=== PATIENT | female | born 1970 | race Caucasian/White ===

== ENCOUNTER 2023-07-21 01:37 | Day surgery (SDC) | payer BC, SELFPAY ==
[2023-07-06 15:01] VITALS: BMI 28.6
--- NOTE | 2023-07-19 11:48 | SUR.PREOP ---
Patient called regarding upcoming procedure. Message left on patient's voicemail regarding preop instructions, appointment times, and procedure prep.
[2023-07-21 12:45] VITALS: BP 125/92; PULSE 96; RESP 18; TEMP 36.3; O2SAT 100; BMI 29.9
--- NOTE | 2023-07-21 12:55 | P.PNAN_ITS ---
Anes - Initial Pre Proc Eval Procedure: Operation Date: 07/21/23 14:00 Proposed Procedures p Screening Colonoscopy - Mike Hayes MD Date/Time: 07/21/23 12:55 Surgeon: Mike Hayes MD Pre Op Diagnosis: neoplasm screening Patient Data Age: 52 Gender: F Height: 1.75 m Weight: 92.2 kg Last Vital Signs Temp 97.3 F L 07/21/23 12:45 Pulse 96 07/21/23 12:45 Resp 18 07/21/23 12:45 BP 125/92 H 07/21/23 12:45 Pulse Ox 100 07/21/23 12:45 O2 Del Method Room Air 07/21/23 12:45 Allergies Allergy/AdvReac Type Severity Reaction Status Date / Time No Known Allergies Allergy Verified 07/21/23 12:51 Home Medications Medication Instructions Recorded Confirmed Type cetirizine 10 mg capsule (Zyrtec) 10 mg PO DAILY 07/06/23 07/06/23 History cholecalciferol (vitamin D3) 125 125 mcg PO DAILY 07/06/23 07/06/23 History mcg (5,000 unit) tablet (Vitamin D3) phentermine 30 mg capsule 30 mg PO DAILY 07/06/23 07/06/23 History topiramate 50 mg tablet 50 mg PO BID 07/06/23 07/06/23 History Patient hx anesthesia problems: none Family hx anesthesia problems: none Results Review: All pre-operative results and documents have been reviewed as part of the pre- operative evaluation. [facility] Family History Family History (System 10/16/21 @ 13:53 by Stephani Griggs) Mother Family history of arthritis Other Acute myocardial infarction Family history of malignant neoplasm of urinary bladder Hypertension Social History Social History (System 10/16/21 @ 13:53 by Stephani Griggs) Smoking packs per day: 0.5 Smoking cigarettes per day: 10.0 Years smoked: 10 Smoking pack-years: 5.00 Smoking status: Former smoker Tobacco type: cigarettes Alcohol intake: current Alcohol use details: 2 drinks per month Living arrangements: with family Spiritual care concerns: No Anes - Eval Final PreProcedure Day of Procedure 07/21/23 12:55 Patient weight: normal Heart: regular rate and rhythm Lungs: clear to auscultation Airway: Mallampati scale class II Neurological: alert and oriented Last oral intake: >/= 8 hours ASA classification: II Emergent: no Anesthetic plan: proceed Anesthesia type and monitoring: general GIVS and standard monitoring Results Review: All pre-operative results and documents have been reviewed as part of the pre- operative evaluation. Informed Consent: The patient's anesthetic plan and its attendant risks and benefits were discussed with the patient/family/POA. Questions were solicited and answers provided to the satisfaction of the patient/family/POA.
[2023-07-21] MEDS: LACTATED RINGERS 1,000 ML 150 ML IV CONT (13:01)
--- NOTE | 2023-07-21 13:07 | PM.HPGS ---
History of Present Illness History of Present Illness Consent: Risks, benefits, and alternatives have been discussed and questions answered. Patient agrees to proceed with procedure. Chief complaint: neoplasm screening Narrative: Mine Kingston is a 52 year old female here for first screening colonoscopy Review of Systems Constitutional: Constitutional: Denies headache(s) and Denies weakness Eyes: Eyes: Denies blurry vision ENT: Reports Normal hearing present, Denies headache(s) and Denies neck pain Cardiovascular: Cardiovascular: Denies chest pain and Denies dyspnea Respiratory: Respiratory: Denies dyspnea Gastrointestinal: Gastrointestinal: Reports no additional gastrointestinal complaints Genitourinary: Genitourinary: Denies dysuria Musculoskeletal: Musculoskeletal: Denies neck pain Integumentary/Breasts: Skin/Breast: Denies dry skin Neurologic: Reports Normal hearing present, Denies headache(s) and Denies weakness Psychiatric: Psychiatric: Denies anxiety Endocrine: Endocrine: Denies change in body appearance Hematologic/Lymphatic: Hematologic/Lymphatic: Denies easy bleeding Allergic/Immunologic: Allergic/Immunologic: Denies urticaria [facility] Past Medical History Medical History (Updated 07/21/23 @ 13:08 by Mike Hayes MD) Colon cancer screening Family History Family History (System 10/16/21 @ 13:53 by Stephani Griggs) Mother Family history of arthritis Other Acute myocardial infarction Family history of malignant neoplasm of urinary bladder Hypertension Social History Social History (System 10/16/21 @ 13:53 by Stephani Griggs) Smoking packs per day: 0.5 Smoking cigarettes per day: 10.0 Years smoked: 10 Smoking pack-years: 5.00 Smoking status: Former smoker Tobacco type: cigarettes Alcohol intake: current Alcohol use details: 2 drinks per month Living arrangements: with family Spiritual care concerns: No Meds Home Medications and Allergies Home Medications Medication Instructions Recorded Confirmed Type cetirizine 10 mg capsule (Zyrtec) 10 mg PO DAILY 07/06/23 07/06/23 History cholecalciferol (vitamin D3) 125 125 mcg PO DAILY 07/06/23 07/06/23 History mcg (5,000 unit) tablet (Vitamin D3) phentermine 30 mg capsule 30 mg PO DAILY 07/06/23 07/06/23 History topiramate 50 mg tablet 50 mg PO BID 11/28/23 11/28/23 History Allergies Allergy/AdvReac Type Severity Reaction Status Date / Time No Known Allergies Allergy Verified 07/21/23 12:51 Vital Signs Vital Signs - 24 hr 07/21/23 12:45 Temperature 97.3 F L Pulse Rate 96 Respiratory Rate 18 Blood Pressure 125/92 H Pulse Oximetry 100 Oxygen Delivery Room Air Exam Const: General: comfortable and no acute distress HENMT: Face/Nose/Sinus: Normal nares present Eyes: General: appearance normal, both eyes and all related structures Neck: Neck: no JVD Resp: Auscultation: clear to auscultation bilaterally Cardio: Rate: regular rate Rhythm: regular rhythm GI: Inspection: non-distended GI Palp: Yes Soft to palpation Skin: General skin exam: normal color Neuro: General: gait normal Speech: normal speech Extrem: General: normal to inspection Psych: Mental Status: mental status grossly normal Assessment and Plan Assessment and plan (1) Colon cancer screening: Code(s): Z12.11 - Encounter for screening for malignant neoplasm of colon Status: Acute Assessment and Plan: colonoscopy
[2023-07-21 13:29] VITALS: BP 128/76; PULSE 91; RESP 21; O2SAT 100
[2023-07-21 13:39] VITALS: BP 102/61; PULSE 82; RESP 26; O2SAT 100
[2023-07-21 13:49] VITALS: BP 100/58; PULSE 80; RESP 22; O2SAT 100
== END 2023-07-21 13:51 | disposition home or self-care (01) ==
PROVIDERS: PCP Physician Assistant; Visit Provider Internal Medicine Gastroenterology
PROC: 0DJD8ZZ Inspection of Lower Intestinal Tract, Via Natural or Artificial Opening Endoscopic (ICD-10-PCS; CPT 45378; principal; 2023-07-21 14:00)
DX: Z12.11 Encounter for screening for malignant neoplasm of colon (principal); Z87.891 Personal history of nicotine dependence
CPT/HCPCS: 45378; J7120

== ENCOUNTER 2023-11-14 13:46 | Emergency (ER) | payer BC, SELFPAY ==
--- NOTE | 2023-11-14 13:55 | ED.WOUNDLAC ---
HPI - Wound/Laceration General Chief Complaint: Wound/Laceration Stated Complaint: R FOOT LACERATION Time Seen by Provider: 11/14/23 14:10 Source: patient, RN notes reviewed and old records reviewed Mode of arrival: ambulatory Limitations: no limitations History of Present Illness HPI narrative: 52-year-old female presents to the [facility] with a right dorsal foot laceration that occurred yesterday approximately 2:00 p.m., approximately 24 hours prior to arrival. Unsure of last tetanus. States that she dropped glass soda bottle on the top of her foot, it broke, 1 cm laceration, bleeding controlled his noted to the dorsal aspect. Patient tetanus UTD: No Treatments prior to arrival: other (Clean) Related Data Home Medications Medication Instructions Recorded Confirmed cetirizine 10 mg capsule (Zyrtec) 10 mg PO DAILY 07/06/23 11/14/23 cholecalciferol (vitamin D3) 125 125 mcg PO DAILY 07/06/23 11/14/23 mcg (5,000 unit) tablet (Vitamin D3) phentermine 30 mg capsule 30 mg PO DAILY 07/06/23 11/14/23 topiramate 50 mg tablet 50 mg PO BID 07/06/23 11/14/23 tirzepatide (weight loss) 5 mg/0.5 5 mg subcut WEEKLY 11/14/23 11/14/23 mL subcutaneous pen injector Allergies Allergy/AdvReac Type Severity Reaction Status Date / Time No Known Allergies Allergy Verified 11/14/23 14:09 Review of Systems Review of Systems: All systems reviewed & are unremarkable except as noted in HPI and below Constitutional: Constitutional: Reports no additional constitutional complaints Eyes: Eyes: Reports no additional eye complaints ENT: Reports system reviewed and no additional complaints, except as documented Cardiovascular: Cardiovascular: Reports no additional cardiovascular complaints, Denies chest pain and Denies dyspnea Respiratory: Respiratory: Reports no additional respiratory complaints, Denies chest congestion, Denies cough and Denies dyspnea Gastrointestinal: Gastrointestinal: Reports no additional gastrointestinal complaints, Denies abdominal pain, Denies nausea and Denies vomiting Musculoskeletal: Musculoskeletal: Reports no additional musculoskeletal complaints Integumentary/Breasts: Skin/Breast: Reports as per HPI and Reports wounds Neurologic: Reports system reviewed and no additional complaints, except as documented Psychiatric: Psychiatric: Reports no additional psychiatric complaints Allergic/Immunologic: Allergic/Immunologic: Reports no additional allergic/immunologic complaints PMFSH Past Medical History Medical History Colon cancer screening Family History Family History Mother Family history of arthritis Other Acute myocardial infarction Family history of malignant neoplasm of urinary bladder Hypertension Social History Social History Smoking packs per day: 0.5 Smoking cigarettes per day: 10.0 Years smoked: 10 Smoking pack-years: 5.00 Smoking status: Former smoker Tobacco type: cigarettes Alcohol intake: current Alcohol use details: 2 drinks per month Living arrangements: with family Spiritual care concerns: No Comments At the time of my signature, I reviewed and agree with the nursing past medical, surgical, social, and family history. There is no relevant family history pertinent to the patient complaint. Exam Const: General: cooperative, healthy appearing, comfortable, no acute distress, well developed, alert and well nourished Nutritional Appearance: well nourished Orientation/consciousness: patient oriented x3 Limitations: no limitations HENMT: Head: normal to inspection Ears: hearing grossly normal bilaterally and external ears normal Face/Nose/Sinus: Normal external nose present, Normal nares present, Normal nasal mucous membranes and turbinates present, normal facial exam and face symmetric Face
[2023-11-14 14:00] VITALS: BP 110/80; PULSE 96; RESP 16; TEMP 36.8; O2SAT 100
[2023-11-14] MEDS: TETANUS,DIPHTHERIA,AC PERTUSSIS ADULT (0.5 ML) BOOSTRIX IM (14:23)
== END 2023-11-14 14:45 | disposition home or self-care (01) ==
PROVIDERS: Emergency Provider Nurse Practitioner; PCP Physician Assistant
DX: S91.311A Laceration without foreign body, right foot, initial encounter (principal); W25.XXXA Contact with sharp glass, initial encounter; Z23 Encounter for immunization; Z87.891 Personal history of nicotine dependence
CPT/HCPCS: 90471; 90715; 99213; G0463

== ENCOUNTER 2025-02-02 10:26 | Outpatient (CLI) | payer OTHER, SELFPAY ==
[2025-02-02 11:53] LABS: Thyroid Stimulating Hormone 0.776 uIU/mL (0.465-4.680)
[2025-02-02 12:33] LABS: Free T3 3.04 pg/mL (2.71-6.16); Free T4 Free Thyroxine. 1.24 ng/dL (0.78-2.19)
[2025-02-03 02:23] LABS: Progesterone. <0.5 ng/mL
[2025-02-06 19:08] LABS: Testosterone Free 1.8 pg/mL (0.1-6.4); Testosterone Total 29 ng/dL (2-45)
== END 2025-02-02 10:27 | disposition home or self-care (01) ==
LOC: ANHLAB 10:32
PROVIDERS: PCP Nurse Practitioner Family; Visit Provider Nurse Practitioner
DX: N95.1 Menopausal and female climacteric states (principal); L65.9 Nonscarring hair loss, unspecified; R53.83 Other fatigue; R63.5 Abnormal weight gain; R68.82 Decreased libido
CPT/HCPCS: 36415; 82670; 82728; 84144; 84402; 84403; 84439; 84443; 84481

== ENCOUNTER 2025-06-25 15:32 | Emergency (ER) | payer OTHER, SELFPAY ==
--- NOTE | ~2025-06-25 | CT_ITS ---
EXAMINATION: CT brain wo con DATE: 06/25/2025 16:09 INDICATION: Right-sided facial paralysis TECHNIQUE: Computed tomography (CT) of the head was performed without intravenous contrast. Sagittal and coronal reconstructions were performed. The mA was adjusted according to patient size. Iterative reconstruction technique was employed. The dose-length product was 605.33 mGy-cm. COMPARISON: None FINDINGS: No acute intracranial hemorrhage, acute infarction or abnormal extra axial fluid collection. Ventricles are normal and symmetric. No mass/mass effect. The orbits, paranasal sinuses and mastoid air cells are normal. IMPRESSION: 1. Normal brain. No acute intracranial process. Reviewed, dictated and finalized at location A. T OFFICE SPEC
[2025-06-25 15:36] VITALS: BP 146/76; PULSE 97; RESP 18; TEMP 36.6; O2SAT 100
[2025-06-25 17:28] VITALS: BP 124/82; PULSE 68; RESP 17; O2SAT 99
[2025-06-25 19:22] LABS: Hematocrit 41.7 % (37.0-47.0); Hemoglobin 13.6 g/dL (12.0-15.0); Immature Granulocyte Percent A 0.5 % (0-0.5); Lymphocytes Absolute Auto 2.55 K/mm3 (0.9-3.2); Mean Corpuscular HGB Conc 32.6 g/dl (32-36); Mean Corpuscular Hemoglobin 28.3 pg (26-34); Mean Corpuscular Volume 86.7 fl (80-100); Nucleated Red Blood Cells Absolute Auto 0.000 K/mm3 (0.0-0.012); Nucleated Red Blood Cells Perc 0.0 % (0.0-0.2); Platelet Count Result 249 k/mm3 (150-375); Red Blood Count 4.81 M/mm3 (4.2-5.4); White Blood Count 8.2 K/mm3 (4.5-10.0)
[2025-06-25 19:41] LABS: Alanine Aminotransferase 22 U/L (6-35); Albumin Level 4.7 g/dL (3.5-5.1); Alkaline Phosphatase 73 U/L (38-126); Anion Gap 7 mmol/L (4-12); Aspartate Amino Transferase 28 U/L (14-36); Bilirubin,Total 0.5 mg/dL (0.2-1.3); Blood Urea Nitrogen 23 mg/dL (7-17); CRP < 0.5 mg/dL (<1.0); Calcium 9.3 mg/dL (8.4-10.2); Carbon Dioxide 29 mmol/L (22-30); Chloride 103 mmol/L (98-107); Estimated CRCL calculation 96 ml/min; Estimated Glomerular Filt Rate > 60; Glucose 92 mg/dL (65-110); Potassium 4.1 mmol/L (3.4-5.0); Sodium 139 mmol/L (137-145); Total Protein 8.7 g/dL (6.3-8.2)
[2025-06-25 20:23] VITALS: BP 137/81; PULSE 74; RESP 14; O2SAT 100
--- NOTE | 2025-06-25 20:57 | ED_ITS ---
HPI - General Adult General Chief complaint: Unspecified Stated complaint: ENT wants her seen for Poss jaron escamilla syndrome Time Seen by Provider: 06/25/25 20:42 History of Present Illness HPI narrative: patient is a 54-year-old female who presents emergency department with chief complaint of possible Garrison Escamilla patient reports that she had pain in her right ear started swelling in the noticed that she had blisters develop on the year the patient states yesterday she developed facial palsy on the right side the same side as the air. Patient was sent to the emergency department for evaluation as they were concerned for possible Jaron Escamilla Related Data Home Medications ?Medication ?Instructions ?Recorded ?Confirmed ?Last Taken ?Type cetirizine 10 mg capsule (Zyrtec) 10 mg PO DAILY 07/0611/14/23 07/21/23 History cholecalciferol (vitamin D3) 125 125 mcg PO DAILY 06/1011/14/23 Unknown History mcg (5,000 unit) tablet (Vitamin D3) phentermine 30 mg capsule 30 mg PO DAILY 07/06/2303/01 Unknown History topiramate 50 mg tablet 50 mg PO BID 07/06/23 Unknown History tirzepatide (weight loss) 5 mg/0.5 5 mg subcut WEEKLY 11/14/23 11/14/23 Unknown History mL subcutaneous pen injector Allergies Allergy/AdvReac Type Severity Reaction Status Date / Time No Known Allergies Allergy Verified 06/25/25 15:41 Review of Systems 2 Review of Systems: A 10 system review of systems was completed on the patient and is negative except for what is stated in the HPI. Nursing and ancillary documentation was reviewed. [facility] Past Medical History Medical History Colon cancer screening Family History Family History Mother Family history of arthritis Other Acute myocardial infarction Family history of malignant neoplasm of urinary bladder Hypertension Social History Social History Smoking packs per day: 0.5 Smoking cigarettes per day: 10.0 Years smoked: 10 Smoking pack-years: 5.00 Smoking status: Former smoker Tobacco type: cigarettes Alcohol intake: current Alcohol use details: 2 drinks per month Living arrangements: with family Spiritual care concerns: No Exam 2 Narrative: GENERAL: Well-appearing, well-nourished, and in no acute distress. HEAD: Normocephalic, atraumatic. EYES: PERRLA and EOMI. ENT: right-sided facial palsy present, right ear is erythematous and there are vesicular lesions present on the ear NECK: Supple. CHEST: Clear to auscultation. No respiratory distress. HEART: Regular rate and rhythm. No murmur heard. Normal peripheral pulses. ABDOMEN: Soft, nontender, nondistended, normal active bowel sounds. EXTREMITIES: Normal range of motion. No edema. SKIN: Warm, dry, no rash. NEURO: No focal deficits other than right-sided facial paralysis. Alert and oriented x3. PSYCH: Normal mood and affect. Course Vital Signs Vital signs: Vital Signs Temperature 36.6 C 06/25/25 15:36 Pulse Rate 97 06/25/25 15:36 Respiratory Rate 18 06/25/25 15:36 Blood Pressure 146/76 H 06/25/25 15:36 Pulse Oximetry 100 06/25/25 15:36 Oxygen Delivery Room Air 06/25/25 15:36 Temperature 36.6 C 06/25/25 15:36 Pulse Rate 74 06/25/25 20:23 Respiratory Rate 14 06/25/25 20:23 Blood Pressure 137/81 06/25/25 20:23 Pulse Oximetry 100 06/25/25 20:23 Oxygen Delivery Room Air 06/25/25 20:23 Medical Decision Making [facility] Narrative Medical decision making narrative: differential diagnosis includes CVA, Garrison Escamilla, varicella patient will be referred to ENT and Neurology patient was started on steroids and will be started on antivirals patient will also be given a prescription for pain control Vital Signs Vital Signs: Vital Signs Temperature 36.6 C 06/25/25 15:36 Pulse Rate 97 06/25/25 15:36 Respiratory Rate 18 06/25/25 15:36 Blood Pressure 146/76 H 06/25/25 15:36 Pulse Oximetry 100 06/25/25 15:36 Oxygen Delivery Room Air 06/25/25 15:36 Temperature 36.6 C 06/25/25 15:36 Pulse Rate 74 06/25/25 20:23 Respiratory Rate 14 06/25/25 20:23 Blood Pressure 137/81 06/25/25 20:23 Pulse Oximetry 100 06/25/25 20:23 Oxygen Delivery Room Air 06/25/25 20:23 Lab Data 06/25/25 19:02 06/25/25 19:02 Labs: Lab Results 06/25/25 Range/Units 19:02 WBC 8.2 (4.5-10.0) K/mm3 RBC 4.81 (4.2-5.4) M/mm3 Hgb 13.6 (12.0-15.0) g/dL Hct 41.7 (37.0-47.0) % MCV 86.7 (80-100) fl MCH 28.3 (26-34) pg MCHC 32.6 (32-36) g/dl RDW 12.4 (11.5-14.5) % Plt Count 249 (150-375) k/mm3 MPV 9.8 (7.4-10.4) fl Immature Gran % (Auto) 0.5 (0-0.5) % Neut % (Auto) 60.0 (45.5-73.1) % Lymph % (Auto) 31.3 (18.3-44.2) % [place] % (Auto) 6.4 (2.6-8.5) % Eos % (Auto) 1.3 (0-4.4) % Baso % (Auto) 0.5 (0.2-1.2) % Lymph # (Auto) 2.55 (0.9-3.2) K/mm3 [place] # (Auto) 0.5 (0.1-0.6) K/mm3 Eos # (Auto) 0.1 (0-0.3) K/mm3 Baso # (Auto) 0.0 (0.0-0.1) K/mm3 Abs Immat Gran (auto) 0.04 H (0.00-0.031) K/mm3 Absolute Neuts (auto) 4.9 (1.3-6.7) K/mm3 Absolute Nucleated RBC 0.000 (0.0-0.012) K/mm3 Nucleated RBC % 0.0 (0.0-0.2) % ESR 15 (0-20) mm/hr Sodium 139 (137-145) mmol/L Potassium 4.1 (3.4-5.0) mmol/L Chloride 103 (98-107) mmol/L Carbon Dioxide 29 (22-30) mmol/L Anion Gap 7 (4-12) mmol/L BUN 23 H (7-17) mg/dL Creatinine 0.80 (0.7-1.0) mg/dL Estim Creat Clear Calc 96 ml/min Estimated GFR > 60 (59 - ) Glucose 92 (65-110) mg/dL Calcium 9.3 (8.4-10.2) mg/dL Total Bilirubin 0.5 (0.2-1.3) mg/dL AST 28 (14-36) U/L ALT 22 (6-35) U/L Alkaline Phosphatase 73 (38-126) U/L C-Reactive Protein < 0.5 (<1.0) mg/dL Total Protein 8.7 H (6.3-8.2) g/dL Albumin 4.7 (3.5-5.1) g/dL Discharge Plan 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) Patient Disposition: Home Condition: Stable Instructions: Antibiotic Form, Shingles (ED), Mer[place] Palsy (ED) Patient Language: Divehi Prescriptions: New prednisone 10 mg tablet 10 mg PO DIRECTED Qty: 45 0RF Rx Instructions: see taper instructions take 6 tablets daily for day 1-5 take 5 tablets on day 6, 4 tablets on day 7, 3 tablets on day 8, 2 tablets on day 9, and 1 tablet on day 10 valacyclovir [Valtrex] 1 gram tablet 1,000 mg PO TID 7 Days Qty: 21 0RF hydrocodone-acetaminophen 5-325 mg tablet 1 tablet PO Q6H PRN (Reason: pain) 3 Days Qty: 12 0RF No Action cephalexin 500 mg capsule 500 mg PO Q12H Qty: 14 0RF tirzepatide (weight loss) 5 mg/0.5 mL Pen Injector 5 mg SUBCUT WEEKLY phentermine 30 mg capsule 30 mg PO DAILY topiramate 50 mg tablet 50 mg PO BID Patient Comments: takes once in the evening Zyrtec 10 mg Capsule 10 mg PO DAILY cholecalciferol (vitamin D3) [Vitamin D3] 125 mcg (5,000 unit) Tablet 125 mcg PO DAILY Follow-up/Referrals: Lucas,Shruthi M., [employer]PER [Primary Care Provider, Unknown] Leonel Leo MD [Physician, Ear, Nose, Throat] Gia Kaminski MD [Physician, Neurology] Time of Disposition: 21:04
[2025-06-25] MEDS: HYDROcodone/acetaminophen (*CRX) 5-325 MG TABLET 1 TAB PO (21:03)
[2025-06-25 21:19] VITALS: BP 119/78; PULSE 69; RESP 16; O2SAT 100
--- OUTSIDE RECORDS SUMMARY | 2025-06-26 01:11 | XMS_ITS | Data Portability ---
Author Organization [facility] [place] Address [address] [place] [address] Assessment No assessment recorded. Plan of Treatment Reminders Order Date Submit Date Provider Last Modified By Organization Details Last Modified Time Details Appointments None recorded. Lab None recorded. Referral None recorded. Procedures None recorded. Surgeries None recorded. Imaging None recorded. Medication Orders phentermine 30 mg capsule 2022 023 [place] [facility] #[id number], [address], [id number], 3 15:46:49 topiramate 50 mg tablet 2022 023 [place] [id number], [address], [id number], 3 15:46:48 topiramate 50 mg tablet 2022 023 [place] [facility] #[id number], [address], [id number], 3 11:51:45 phentermine 30 mg capsule 2022 023 [place] [facility]89[facility], [address], [id number], 3 11:51:45 Contrave 8 mg-90 mg tablet,exte nded release 2022 023 [email or web address] [facility] #81954, [address], [place], [place], [id number], 3 11:33:10 Patient TargetsNo targets recorded. Patient InstructionsNo instructions recorded. Reason for Referral None Reported. Results Created Date Observation Date Name Description Value Unit Range Abnormal Flag Note LastModifiedBy Organization Detail LastModifiedTime Result Notes None recorded. Procedures Surgical History Date Name Laterality Status Provider Name and Address Organization Details Recorded Time 2 Date of Last Pap Smear completed [facility] 05/08/2022 15:33:46 2 Date of Last Mammogram completed [facility] 05/08/2022 15:33:46 Tubal Ligation completed [facility] 05/08/2022 15:33:58 Caesarean Section completed [facility] 05/08/2022 15:33:58 Dilation and Curettage completed [facility] 05/08/2022 15:33:58 Imaging Results None recorded. Procedure Notes None recorded. Medical Equipment None Reported. Allergies No known drug allergies Medications Name Sig Start Date Stop Date Status Note LastModified by Organization Details LastModified Time prednisone 20 mg tablet TAKE 3 TABLETS BY MOUTH EVERY DAY FOR 5 DAYS 05/08 completed Not Available Not Available Not Available phentermine 15 mg capsule TAKE 1 CAPSULE BY MOUTH EVERY DAY 03/30 completed Not Available Not Available Not Available phentermine 37.5 mg tablet TAKE 1 TABLET BY MOUTH EVERY DAY 05/08 completed Not Available Not Available Not Available phentermine 30 mg capsule TAKE 1 CAPSULE BY MOUTH EVERY DAY 2023 active Not Available Not Available Not Avai lable amoxicillin 875 mg tablet TAKE 1 TABLET BY MOUTH EVERY 12 HOURS FOR 7 DAYS 03/30 completed Not Available Not Available Not Available cefuroxime axetil 500 mg tablet TAKE 1 TABLET BY MOUTH EVERY 12 HOURS 05/08 completed Not Available Not Available Not Available topiramate 50 mg tablet Take 1 tablet twice a day by oral route. active Not Available Not Available No t Available Margie 0.35 mg tablet TAKE 1 TABLET BY MOUTH EVERY DAY active Not Available Not Available No t Available [facility] (cetirizine ) 10 mg capsule active Not Available Not Available Not Available Contrave 8 mg-90 mg tablet,exte nded release Take by oral route for 7 days. 02/13 completed Not Available Not Available Not Available Mounjaro 7.5 mg/0.5 mL subcutaneou s pen injector ADMINISTE R 0.5 ML UNDER THE SKIN EVERY WEEK 10/27 completed Not Available Not Available Not Available Mounjaro 5 mg/0.5 mL subcutaneou s pen injector INEJCT 5MG SUBCUTANE OUS EVERY WEEK 10/27 completed Not Available Not Available Not Available Mounjaro 2.5 mg/0.5 mL subcutaneou s pen injector INJECT 2.5MG UNDER THE SKIN ONCE WEEKLY 10/27 completed Not Available Not Available Not Available Vitals Date Recorded Body height Body mass index (BMI) Body weight Systolic And Diastolic Provider Name and Address Organization Details Last Updated DateTime 12/01/2022 175.26 cm 31.6 kg/m2 58323.77 g 122/71 mm[Hg] [facility] 12/01/2022 12:52:51 Date Recorded Body height Body mass index (BMI) Body weight Systolic And Diastolic Provider Name and Address Organization Details Last Updated DateTime 01/09/2023 175.26 cm 31.2 kg/m2 60108.99 g 124/64 mm[Hg] MARGIE CHAMBERS [facility] 01/09/2023 10:50:03 Date Recorded Body height Body mass index (BMI) Body weight Systolic And Diastolic Provider Name and Address Organization Details Last Updated DateTime 02/13/2023 175.26 cm 31.2 kg/m2 09446.99 g 114/72 mm[Hg] [facility] 02/13/2023 11:33:07 Date Recorded Body height Body mass index (BMI) Body weight Systolic And Diastolic Provider Name and Address Organization Details Last Updated DateTime 03/30/2023 175.26 cm 30.9 kg/m2 71794.6 g 129/83 mm[Hg] Tara Bermudez [facility] 03/30/2023 15:36:51 Date Recorded Body height Body mass index (BMI) Body weight Systolic And Diastolic Provider Name and Address Organization Details Last Updated DateTime 07/29/2023 175.26 cm 30.4 kg/m2 18613.03 g 129/73 mm[Hg] Mary Jo Maynard [facility] 07/29/2023 14:50:02 Social History Question Answer Notes LastModified by Organizat ion Details LastModified Time Tobacco Smoking Status Never Smoker [email or web address] 07/29/2023 14:31:28 Do You Have An Advance Directive? No Information n ot available 05/08/2022 How Many Years Have You Consumed Alcohol? 25 Information not available 05/08/2022 Are You Blind Or Do You Have Difficulty Seeing? No Information n ot available 05/08/2022 What Is Your Level Of Caffeine Consumption? Moderate Information not available 05/08/2022 How Much Tobacco Do You Chew? None Information not available 05/08/2022 In The 14 Days Before Symptom Onset, Have You Had Close Contact With A Laboratory-confirm ed COVID-19 While That Case Was Ill? No Information n ot available 05/08/2022 In The 14 Days Before Symptom Onset, Have You Had Close Contact With A Person Who Is Under Investigation For COVID-19 While That Person Was Ill? No Information not available 05/08/2022 Have You Been To An Area Known To Be High Risk For COVID-19? No Information not available 05/08/2022 Are You Deaf Or Do You Have Serious Difficulty Hearing? No Information not available 05/08/2022 What Type Of Diet Are You Following? REGULAR Information n ot available 05/08/2022 What Is The Highest Grade Or Level Of School You Have Completed Or The Highest Degree You Have Received? [id number] Information not available 05/08/2022 Are There Any Guns Present In Your Home? Yes Information not available 05/08/2022 Do You Use Protection During Sex? No Information not available 05/08/2022 Do You Use Your Seat Belt Or Car Seat Routinely? Yes Information not available 05/08/2022 Do You Have Smoke And Carbon Monoxide Detectors In Your Home? Yes Information not available 05/08/2022 How Much Tobacco Do You Smoke? No Information not available 05/08/2022 Do You Use Sunscreen Routinely? Yes Information not available 05/08/2022 Have You Used IV Drugs? No Information not available 05/08/2022 Do You Have Difficulty Walking Or Climbing Stairs? No [email or web address] Information not available 07/29/2023 Sex: Unknown Functional Status Question Answer Note LastModified by Organizat ion Details LastModified Time Do you use any illicit or recreational drugs? No Information not available 05/08/2022 What is your level of alcohol consumption? Occasional Information not available 05/08/2022 Are you able to walk independently without assistance or assistive devices? [email or web address] Information not available 05/08/2022 Are you able to care for yourself independently? Yes [email or web address] Information not available 07/29/2023 What is your occupation? RN Information not available 05/08/2022 Do you have difficulty dressing, bathing, grooming, or toileting? No [email or web address] Information not available 07/29/2023 What is your exercise level? Occasional Information not available 05/08/2022 Mental Status Question Answer Note LastModified by Organization D etails LastModified Time Do you feel stressed (tense, restless, nervous, or anxious, or unable to sleep at night)? [id number] Information not available 05/08/2022 Family History Relationship Description Onset Age of this Age Resolved Age Notes LastModified by Organization Details LastModified Time Maternal Grandmother Cerebrovascu lar accident [email or web address] Not available 15:44:04 Maternal Grandmother Heart disease [email or web address] Not available 2022 15:44:04 Maternal Grandmother Myocardial infarction [email or web address] Not available 10/27 15:44:04 Maternal Grandmother Myocardial infarction [email or web address] Not available 07/29 14:31:27 Maternal Grandmother Cerebrovascu lar accident [email or web address] Not available 14:31:27 Maternal Grandmother Heart disease [email or web address] Not available 2022 14:31:27 Father Cerebrovascu lar accident [email or web address] Not available 15:44:04 Father Cerebrovascu lar accident [email or web address] Not available 14:31:27 Maternal Grandfather Myocardial infarction [email or web address] Not available 10/27 15:44:04 Maternal Grandfather Myocardial infarction [email or web address] Not available 07/29 14:31:27 Paternal Grandmother Cerebrovascu lar accident [email or web address] Not available 15:44:04 Paternal Grandmother Cerebrovascu lar accident Not available 14:31:27 Medical History Condition Response Allergies (Food, seasonal, environmental ) Y Other N Breast Cancer N Drug/Latex Allergies/Reactions N Blood Transfusion N Dermatologic Disorders N Lung Disease N Defects or Inherited Disease N Breast Problem N Gestational Diabetes N Hematologic disorders N Anesthesia Complications N History of STI N Deep Vein Thrombosis N Polycystic ovary syndrome N Anxiety Disorder N Autoimmune disease N Arthritis N Infertility N Polyps N Acid Reflux (GERD) N History of abnormal pap N Cancer N Stroke N Varicosities N Neurologic/Epilepsy N Endometriosis N High Cholesterol N Headaches N Fibromyalgia N Kidney Disease N Heart Problems N Kidney or Bladder Problems N Thyroid Problems N GI Problems N Eating Disorder N Anemia N Art (IVF or FET) N Psychiatric Illness N Ovarian Cancer N Diabetes N Pulmonary (TB, Asthma) N Hepatitis/Liver Disease N No Past Medical History N Eczema N Urinary Tract Infection N Abuse/Domestic Violence N Asthma N Trauma/Violence N Depression/ depression N Heart Disease N Pre-Eclampsia N Hypertension N Osteoporosis N Thrombophilias N Gynecological History Statement/Question Response Date of Last Mammogram 09/23/2021 Date of LMP 04/23/2022 On BCP's at Conception? N N Was last menstrual period normal Y STIs/STDs N HPV Vaccine N Duration of Flow (days) 7 Current Control Method Tubal Ligat ion Age at First Child 31 Frequency of Cycle (Q days) 32 Sexually Active? Y Age of first menstrual cycle 14 Date of Last Pap Smear 10/21/2021 Sexual Problems? N LMP Definite N Obstetrics History GPAL:G 4 P 3 0 1 3 Type Value Full Term 3 Living 3 Ectopics 1 Total 4 Past Encounters Encounter ID Performer Location Encounter Start Date Encounter Closed Date Diagnosis/Indication Diagnosis SNOMED-CT Code Diagnosis ICD10 Code Diagnosis IMO Codes Diagnosis Note [id number] Shalom Man MD [facility] [address] [address] 05/08/2022 15:17:22 05/12/2022 14:20:56 Premenstrual dysphoric disorder 318085 F32.81 Abnormal u terine bleeding [id number] 9100 N93.9 This patient is a 51-year-ol d female with 2 complex problems. We spent more than 40 minutes face-to-fa ce. More than 50% was counseling . We talked about a mood concern. Patient has intense mood lability the 2 weeks prior to her menses. Patient has concern about perimenopa use she has some irregular bleeding. We discussed perimenopa use, abnormal uterine bleeding. We talked about her mood concerns. Talked about premenstru al dysphoric disorder. Talked about the treatment. We agreed to try to eliminate her luteal phase. Talked with evaluation abnormal uterine bleeding. We agreed to obtain laboratory evaluation . We agreed to pelvic ultrasound . Talked about obesity 2. Talked about energy balance in detail. We talked about managing energy intake talked about weight loss program here that we have. Obesity 966138437 E66.9 [id number] Shalom Man MD [facility] [address] [address] 06/02/2022 15:02:04 06/03/2022 15:16:37 Obesity 058445670 E66.9 This patient is a 51-year-ol d female who presents for weight management . We took a very thorough history. We talked about some of her goals. Talked about some of her challenges . We talked about some of her previous efforts in weight loss and her activity level. We talked about limitation s for activity. Talked about energy consumptio n energy expenditur e. She was given recommenda tions and some of these areas. We talked about the importance of resistance training and cardiovasc ular exercise. We talked about her medical history in its relationsh ip to excess body weight. We talked about treatment options. We talked about the evaluation that is appropriat e for beginning weight management . We talked about her diet and our dietitian. We agreed to a dietitian consult. We agreed to a sleep study. We agreed to metabolic testing. We performed body compositio n testing today. We reviewed those results and talked about their significan ce. We spent over 1 hour together. More than 50% was counseling . We agreed to come together in 2 weeks and initiate treatment. we agreed to dietitian consult. She has an elevated hemoglobin A1c. She is going to provide that document. We performed body compositio n. She does not require sleep study. She is considerin g resting energy expenditur e stopping. She return in 2 weeks to discuss treatment options. [id number] Shalom Man MD [facility] [address],[place] [address] 07/21/2022 16:45:50 07/22/2022 14:57:53 Obesity 062863992 E66.9 this patient is a 51-year-ol d female who started on general about 6 weeks ago. She has lost considerab le weight. She is very satisfied with her results and the way she is responding to the medication s. She has little appetite and feels full quickly. She does not report any negative side effects. She denies any GI side effects for nausea. We spent 20 minutes face-to-fa ce. More than 50% was counseling . We agreed to increase her dose. [id number] Shalom Man MD [facility] [address],[facility] [place] [address] 08/25/2022 15:40:38 08/26/2022 16:05:14 Prediabetes 553713136 R73.03 This patient is a 51-year-ol d female presents for weight management follow-up. She has been able to get her GLP 1 agonist filled. She has continued to lose weight. Although it is at a modest face, she has started a small amount of exercise to. She is comfortabl e with tele her diet. She has made significan t progress in her diet has good foundation of knowledge. We spent more than 20 minutes face-to-fa ce. More than 50% was counseling . We agreed to go to the next eyes dose of the G LP 1 agonist which is 7.5 mg. She will follow-up in 1 month. [id number] Shalom Man MD [facility] [address],[place] [address] 09/29/2022 16:16:22 09/29/2022 17:36:21 Obesity 478203174 E66.9 This patient is a 51-year-ol d female presents for weight management follow-up. She continues to lose weight. She is using the new G LP 1 agonist. We talked about diet and exercise. We agreed to continue the GLP 1 agonist 7.5 mg per week. We spent 20 minutes face-to-fa ce. More than 50% was counseling . She will follow-up in 1 month. [id number] Shalom Man MD [facility] [address],[place] [address] 10/27/2022 15:04:29 10/27/2022 18:35:58 Obesity 987947793 E66.9 This patient is 51-year-ol d female presents for follow-up on weight management . She continues to lose weight slowly. She has not been able to get the GLP 1 agonist. Her insurance has changed she lost approval. Talked about medication s. She we spent 20 minutes face-to-fa ce. More than 50% was counseling . we talked largely about medication s and treatment options. We described the risks, benefits, and alternativ es to various medication s. We agreed to proceed with phentermin e and topiramate the lowest doses. [id number] Shalom Man MD [facility] [address],[place] [address] 12/01/2022 12:41:33 12/01/2022 13:34:01 Obesity 848084822 E66.9 51-year-ol d female presents for follow-up on weight management . she has again lost considerab le weight in the interval. She continues to be active. She is calorie counting and very meticulous about her record keeping on consumptio n calories. She has logging it in an maria victoria. She has no complaints . She restarted phentermin e after she was forced to discontinu e the GLP 1 agonist. We spent over 20 minutes face-to-fa ce. She is on 15 mg of phentermin e. More than 50% was counseling [id number] Shalom Man MD [facility] [address],[place] [address] 01/09/2023 10:18:12 01/11/2023 10:59:14 Obesity 353735603 E66.9 51-year-ol d female presents for follow-up on weight management . she has again lost moderate weight in the interval. She continues to be active. She is calorie counting and very meticulous about her record keeping on consumptio n calories. She has logging it in an maria [place]. She has no complaints . She would like to start contrave. We discussed dosing and side affects. TO begin We spent over 20 minutes face-to-fa ce. She is on 15 mg of phentermin e. More than 50% was counseling [id number] Shalom Man MD [facility] [address],[place] [address] 02/13/2023 11:12:55 02/15/2023 11:04:22 Obesity 427504702 E66.9 51-year-ol d female presents for follow-up on weight management . she has again lost moderate weight in the interval. She continues to be active. She is calorie counting and very meticulous about her record keeping on consumptio n calories. She has logging it in an maria victoria. maintainin g a 1500 calorie diet She has no complaints . We spent over 20 minutes face-to-fa ce. She will move ton 30 mg of phentermin e. More than 50% was counseling . Has vacation recently. Has had some distractio ns for weight loss efforts. Eager to reapply herself. [id number] Shalom Man MD [facility] [address] [address] 03/30/2023 15:29:22 03/30/2023 15:50:38 Obesity 129669562 E66.9 51-year-ol d female presents for follow-up on weight management . she has again lost moderate weight in the interval. She continues to be active. She is calorie counting and very meticulous about her record keeping on consumptio n calories. She has logging it in an maria [place]oria. maintainin g a 1500 calorie diet She has no complaints . We spent over 20 minutes face-to-fa ce. She will move ton 30 mg of phentermin e. More than 50% was counseling . Has vacation recently. Has had some distractio ns for weight loss efforts. Eager to reapply herself. [id number] Shalom Man MD [facility] [address] [address] 07/29/2023 14:31:16 07/29/2023 15:32:03 Obesity 312511052 E66.9 51-year-ol d female presents for follow-up on weight management . she has again lost moderate weight in the interval. She continues to be active. She is calorie counting and very meticulous about her record keeping on consumptio n calories. She has logging it in an maria [place]. maintainin g a 1500 calorie diet She has no complaints . We spent over 20 minutes face-to-fa ce. She will move ton 30 mg of phentermin e. More than 50% was counseling . Has vacation recently. Has had some distractio ns for weight loss efforts. Eager to reapply herself. Health Concerns Section Related Observation LastModified by Organization Detai ls LastModified Time None Recorded Concern Status LastModified by Organization Details LastModified Time None Recorded Advance Directives Directive N: Payers Insurance Date Sequence Insurance Name Policy Number Policy Vu Covered Member ID Vu Member ID Guarantor Name 10/27/2022 1 [employer] [id number] Mine Oliveras [id number] Mine Camacohmons 10/27/2022 1 [place] Mine Yepez Plemons [id number] Mine Yepez Plemons 08/05/2023 1 [facility] ([place] [id number] Mine Yepez Plemons [id number] Mine Yepez Plemons 03/25/2023 1 [facility] (PPO) Mine Camachomons [id number] Mine Yepez Plemons 08/05/2023 1 [facility] (PPO) [id number] Mine Camachomons [id number] Mine Oliveras Notes Date Note Type Note Provider Name and Address Organization Details Recorded Time 12/01/2022 text/html 51-year-old female presents for follow-up on weight management. she has again lost considerable weight in the interval. She continues to be active. She is calorie counting and very meticulous about her record keeping on consumption calories. She has logging it in an [place]ia [place]. She has no complaints. She restarted phentermine after she was forced to discontinue the GLP 1 agonist. We spent over 20 minutes [id number]. She is on 15 mg of phentermine. More than 50% was counseling Shalom Man MD [address], [place], [address], [facility] 12/01/2022 13:28:45 01/09/2023 text/html 51-year-old female presents for follow-up on weight management. she has again lost moderate weight in the interval. She continues to be active. She is calorie counting and very meticulous about her record keeping on consumption calories. She has logging it in an [place]ia [place]. She has no complaints. She would like to start contrave. We discussed dosing and side affects. TO begin We spent over 20 minutes [id number]. She is on 15 mg of phentermine. More than 50% was counseling Shalom Man MD [address], [place], [address], [facility] 01/09/2023 11:25:47 02/13/2023 text/html 51-year-old female presents for follow-up on weight management. she has again lost moderate weight in the interval. She continues to be active. She is calorie counting and very meticulous about her record keeping on consumption calories. She has logging it in an [place]ia [place]. maintaining a 1500 calorie diet She has no complaints. We spent over 20 minutes [id number]. She will move ton 30 mg of phentermine. More than 50% was counseling. Has vacation recently. Has had some distractions for weight loss efforts. Eager to reapply herself. Shalom Man MD [address], [place], [address], [facility] 02/13/2023 12:12:22 03/30/2023 text/html 51-year-old female presents for follow-up on weight management. she has again lost moderate weight in the interval. She continues to be active. She is calorie counting and very meticulous about her record keeping on consumption calories. She has logging it in an [place]ia [place]. maintaining a 1500 calorie diet She has no complaints. We spent over 20 minutes [id number]. She will move ton 30 mg of phentermine. More than 50% was counseling. Has vacation recently. Has had some distractions for weight loss efforts. Eager to reapply herself. Shalom Man MD [address], [place], [address], [facility] 03/30/2023 15:50:24 07/29/2023 text/html 51-year-old female presents for follow-up on weight management. she has again lost moderate weight in the interval. She continues to be active. She is calorie counting and very meticulous about her record keeping on consumption calories. She has logging it in an maria [place]. maintaining a 1500 calorie diet She has no complaints. We spent over 20 minutes [id number]. She will move ton 30 mg of phentermine. More than 50% was counseling. Has vacation recently. Has had some distractions for weight loss efforts. Eager to reapply herself. Shalom Man MD [address], [place], [address], [facility] 07/29/2023 15:29:37 OBGyn Episode Ob Episode Information Episode Created Date Number of Fetuses Patient Bloodtype Patient rh Status Prepregnancy Weight lbs Domestic Partner Domestic Partner Phone Father Name [employer] Caretaker Status 05/08/20 22 1 CLOSED Fetus Data First Name Last Name Admitted to NICU Weight (g) Sex Living Outcome Pediatric Complications Fetus ID Race Codes Race Delivery Type 4082.32 [id number] M Full Term [id number] Primary Karsten Calculation Initial Karsten Date Initial Exam Date Initial Exam Provider Initial Ultrasound Date Last Menstrual Period Date Ultra Sound Weeks Gestation 0 Eighteen To Twenty Week Karsten Update Ultra Sound Date Fundal Height At Umbil Quickening Date Ultra Sound Latest Weeks Gestation Final Karsten Confirmed By Final Karsten Confirmed Date Final Karsten Date Ultra Sound Latest Days Gestation 0 0 Menstrual History Last Menstrual Date Menses Monthly On Bcp Conception Prior Menses Frequency Hcg Plus Date Menarche Onset Age Delivery Information Delivery Date Delivery Type Labor Anesthesia Weeks Gestation Incision Type Labor Labor Length Hrs Delivered By Post Complications Tubal Sterilization Discharge Date Comments 3 39 Discharge Information Feeding Method Contraceptive Method Maternal HG B and HCT Levels Ob Episode Information Episode Created Date Number of Fetuses Patient Bloodtype Patient rh Status Prepregnancy Weight lbs Domestic Partner Domestic Partner Phone Father Name [employer] C[employer] Status 05/08/20 22 1 CLOSED Fetus Data First Name Last Name Admitted to NICU Weight (g) Sex Living Outcome Pediatric Complications Fetus ID Race Codes Race Delivery Type 3826.95 [id number] M Full Term [id number] Repeat Karsten Calculation Initial Karsten Date Initial Exam Date Initial Exam Provider Initial Ultrasound Date Last Menstrual Period Date Ultra Sound Weeks Gestation 0 Eighteen To Twenty Week Karsten Update Ultra Sound Date Fundal Height At Umbil Quickening Date Ultra Sound Latest Weeks Gestation Final Karsten Confirmed By Final Karsten Confirmed Date Final Karsten Date Ultra Sound Latest Days Gestation 0 0 Menstrual History Last Menstrual Date Menses Monthly On Bcp Conception Prior Menses Frequency Hcg Plus Date Menarche Onset Age Delivery Information Delivery Date Delivery Type Labor Anesthesia Weeks Gestation Incision Type Labor Labor Length Hrs Delivered By Post Complications Tubal Sterilization Discharge Date Comments 4 38 Discharge Information Feeding Method Contraceptive Method Maternal HG B and HCT Levels Ob Episode Information Episode Created Date Number of Fetuses Patient Bloodtype Patient rh Status Prepregnancy Weight lbs Domestic Partner Domestic Partner Phone Father Name [employer] C[employer] Status 05/08/20 22 1 CLOSED Fetus Data First Name Last Name Admitted to NICU Weight (g) Sex Living Outcome Pediatric Complications Fetus ID Race Codes Race Delivery Type 3458.63 9 F Full Term [id number] Repeat Karsten Calculation Initial Karsten Date Initial Exam Date Initial Exam Provider Initial Ultrasound Date Last Menstrual Period Date Ultra Sound Weeks Gestation 0 Eighteen To Twenty Week Karsten Update Ultra Sound Date Fundal Height At Umbil Quickening Date Ultra Sound Latest Weeks Gestation Final Karsten Confirmed By Final Karsten Confirmed Date Final Karsten Date Ultra Sound Latest Days Gestation 0 0 Menstrual History Last Menstrual Date Menses Monthly On Bcp Conception Prior Menses Frequency Hcg Plus Date Menarche Onset Age Delivery Information Delivery Date Delivery Type Labor Anesthesia Weeks Gestation Incision Type Labor Labor Length Hrs Delivered By Post Complications Tubal Sterilization Discharge Date Comments 5 38.4 Discharge Information Feeding Method Contraceptive Method Maternal HG B and HCT Levels
== END 2025-06-25 21:20 | disposition home or self-care (01) ==
LOC: ANHED 21:09
PROVIDERS: Emergency Medicine; Emergency Provider Emergency Medicine; PCP Nurse Practitioner Family
DX: B02.21 Postherpetic geniculate ganglionitis (principal); Z87.891 Personal history of nicotine dependence
CPT/HCPCS: 36415; 70450; 80053; 85025; 85652; 86140; 99284; A9270; J7512